=== PATIENT | female | born 2000 | race Caucasian/White ===

== ENCOUNTER → 2021-08-13 | Outpatient (CLI) | payer OTHER ==
[2021-08-13 18:09] LABS: HEMATOCRIT 39.1 % (36.0-47.0); HEMOGLOBIN 13.1 g/dl (12.0-15.5); MEAN CORPUSCULAR HEMOGLOBIN 29.8 pg (27.0-33.0); MEAN CORPUSCULAR HGB CONC 33.5 g/dl (32.0-36.5); MEAN CORPUSCULAR VOLUME 89.1 fl (80.0-96.0); PLATELET COUNT, AUTOMATED 230 10^3/uL (150-450); RED BLOOD COUNT 4.39 10^6/uL (4.00-5.40); WHITE BLOOD COUNT 11.6 10^3/uL (4.0-10.0)
[2021-08-13 19:57] LABS: GC DNA AMPLIFICATION NEGATIVE (NEGATIVE)
[2021-08-13 20:58] LABS: HEPATITIS C VIRUS ABY INDEX 0.1 INDEX (<0.8); HIV 1&2 SCREEN CENTAUR NEGATIVE (NEGATIVE)
== END ==
LOC: M PLALAB 14:27
PROVIDERS: ATTEND Advanced Practice Midwife
DX: Z34.01 Encounter for supervision of normal first pregnancy, first trimester (principal); Z3A.00 Weeks of gestation of pregnancy not specified
CPT/HCPCS: 36415; 85027; 86762; 86780; 86803; 86850; 86900; 86901; 87086; 87340; 87389; 87491; 87591; G0463

== ENCOUNTER → 2021-09-23 | Outpatient (CLI) | payer OTHER | LOC: M PLALAB 13:42 | PROVIDERS: ATTEND Advanced Practice Midwife | DX: Z53.20 Procedure and treatment not carried out because of patient's decision for unspecified reasons (principal) ==

== ENCOUNTER → 2021-10-10 | Outpatient (CLI) | payer OTHER | LOC: M WHC 09:25 | PROVIDERS: ATTEND Obstetrics & Gynecology | DX: Z34.92 Encounter for supervision of normal pregnancy, unspecified, second trimester (principal); Z3A.21 21 weeks gestation of pregnancy ==

== ENCOUNTER → 2021-11-21 | Outpatient (CLI) | payer OTHER ==
[2021-11-21 17:13] LABS: HEMATOCRIT 35.2 % (36.0-47.0); HEMOGLOBIN 11.4 g/dl (12.0-15.5); MEAN CORPUSCULAR HEMOGLOBIN 30.4 pg (27.0-33.0); MEAN CORPUSCULAR HGB CONC 32.4 g/dl (32.0-36.5); MEAN CORPUSCULAR VOLUME 93.9 fl (80.0-96.0); PLATELET COUNT, AUTOMATED 199 10^3/uL (150-450); RED BLOOD COUNT 3.75 10^6/uL (4.00-5.40); WHITE BLOOD COUNT 14.3 10^3/uL (4.0-10.0)
[2021-11-21 18:49] LABS: GC DNA AMPLIFICATION NEGATIVE (NEGATIVE)
== END ==
LOC: M PLALAB 13:11
PROVIDERS: ATTEND Obstetrics & Gynecology
DX: Z34.92 Encounter for supervision of normal pregnancy, unspecified, second trimester (principal); Z3A.22 22 weeks gestation of pregnancy
CPT/HCPCS: 36415; 82950; 85027; 86850; 86900; 86901; 87810; 87850; G0463

== ENCOUNTER → 2022-01-16 | Outpatient (CLI) | payer OTHER | LOC: M WHC 14:45 | PROVIDERS: ATTEND Obstetrics & Gynecology | DX: O24.419 Gestational diabetes mellitus in pregnancy, unspecified control (principal); Z3A.35 35 weeks gestation of pregnancy ==

== ENCOUNTER → 2022-01-27 | Outpatient (REF) | payer OTHER | LOC: M SFHCWAGY 17:21 | PROVIDERS: ATTEND Obstetrics & Gynecology | DX: Z36.85 Encounter for antenatal screening for Streptococcus B (principal) | CPT/HCPCS: 59025; 87081; G0463 ==

== ENCOUNTER 2022-02-04 09:32 | Outpatient (CLI) | payer OTHER ==
[2022-02-04] VITALS (23 sets, daily range): BP systolic 104–153; BP diastolic 55–86
[~2022-02-04] VITALS: Ht 167.6 cm; Wt 101.4 kg
[2022-02-04] MEDS ORDERED: HOME MED LIST COMPLETE! XX SCH (10:00)
[2022-02-04] MEDS ORDERED: TERBUTALINE SULFATE 1 MG/ML VIAL (J3105) SC ONE (10:05)
[2022-02-04 10:38] LABS: HEMATOCRIT 36.1 % (36.0-47.0); MEAN CORPUSCULAR HEMOGLOBIN 29.9 pg (27.0-33.0); RED BLOOD COUNT 4.01 10^6/uL (4.00-5.40); WHITE BLOOD COUNT 9.9 10^3/uL (4.0-10.0)
[2022-02-04 10:39] LABS: MEAN CORPUSCULAR HGB CONC 33.2 g/dl (32.0-36.5); PLATELET COUNT, AUTOMATED 155 10^3/uL (150-450)
[2022-02-04] MEDS ORDERED: FENTANYL 2MCG/ML ROPIVACAINE 0.2% IN 0.9% NACL 100ML IVBAG As Ordered ONE (11:19)
== END 2022-02-04 15:45 | disposition home or self-care (01) ==
LOC: M LDO 09:32
PROVIDERS: ATTEND Obstetrics & Gynecology
DX: O32.1XX9 Maternal care for breech presentation, other fetus (principal); Z3A.37 37 weeks gestation of pregnancy
CPT/HCPCS: 59025; 59412; 76815; 85027; 87426; G0463; J3105

== ENCOUNTER → 2023-02-02 | Outpatient (REF) | payer OTHER ==
[~2023-02-02] MED LIST: ACET-683 PO; COLA100C5 PO; IBUP-1022 PO; LANTINJ4 SC; PRENTAB9 PO; TUMS500C PO
== END ==
LOC: M PLALAB 13:50
PROVIDERS: ATTEND Obstetrics & Gynecology
DX: Z01.419 Encounter for gynecological examination (general) (routine) without abnormal findings (principal); R87.610 Atypical squamous cells of undetermined significance on cytologic smear of cervix (ASC-US)
CPT/HCPCS: 87624; G0123; G0463